=== PATIENT | female | born 1985 | race Caucasian/White ===

== ENCOUNTER → 2016-03-12 | Outpatient (CLI) | payer BC ==
[~2016-03-12] MED LIST: BP MED UNKNOWN; CEPH500C PO; CYCL10TA45 PO; HYDR-3702 PO; METH4TAB27 PO; NF-AMPE5T PO; NF-MEDROXA IM; PRED20TA PO; TRAZ-28 PO
[2016-03-13 19:25] VITALS: BP 135/86
--- NOTE | 2016-03-13 19:25 | Urgent Care T Sheet Gen (E) ---
Intake General Temperature (Fahrenheit): 98.6 Pulse: 113 Blood Pressure Systolic: 135 Blood Pressure Diastolic: 86 Respirations: 20 SPO2: 98 Chief Complaint: fever, body aches Source: Patient History of Present Illness Initial Comments Pt notes that on Friday she developed diarrhea and nausea. No vomiting. She notes that Friday evening she developed a fever of 101.5 with body aches. She notes that she has developed a slight cough and feels exhausted. She expresses concern that she might be developing "influenza". No recent travel. 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 She is drinking lots of water and holding fluids down well. Allergies: Coded Allergies: No Known Allergies (Verified Allergy, Unknown, 07/11/14) Home Meds Active Scripts Prednisone 20 Mg Zowsri60 Mg PO BID #6 TAB Prov:NATALI IGLESIAS PA 09/22/15 Hydrocodone/Acetaminophen ([facility] 5mg/325mg)1 Each Tablet1-2 Tab PO Q6H PRN PAIN #30 TAB Ref 0 Prov:RANDALL,GORDON Fawn DO 07/20/14 Cephalexin 500 Mg [id number] Mg PO QID #20 CAP Ref 0 Prov:ROOPA RANDALL Fawn DO 07/20/14 Reported Medications [Bp Med Unknown] No Conflict Check 07/11/14 Amphetamine Aspartate/Sulfate (Adderall)5 Mg Tab5 Mg PO TID 07/11/14 Trazodone HCl 50 Mg Tryryt31 Mg PO HS 07/11/14 Medroxyprogesterone Acetate (Depo-Provera)150 Mg/1 Ml Disp.uzgpb658 Mg IM UD 07/11/14 Respiratory Constitutional Symptoms: See HPI Fever EENTM: See HPI Nose Congestion Respiratory: See HPI Cough (mild) Cardiovascular: No symptoms reported Gastrointestinal/Abdominal: No No symptoms reported, See HPINo Abdominal pain , No Constipation, DiarrheaNo Black stools, NauseaNo Vomiting, No Other, No RUQ, No LUQ, No RLQ, No LLQ Genitourinary: No symptoms reported Skin: No symptoms reported All Other Systems Reviewed Remaining Systems: All other systems reviewed with negative findings Past Wjvburq-Xjwhzi-Bdwtbp Hx Patient's Social History Alcohol Use: Denies Use Smoking Status: Never smoker Recent foreign travel: No Surgeries/Hospitalizations Hospitalization/Surgery Hx: DENIES Respiratory Respiratory History: None Cardiovascular Cardiovascular History: Hypertension Reproductive System Sexually Transmitted Diseases: No Gastrointestinal GI/Endocrine History: None Diabetes Diabetes: No HEENT Impaired Vision: Glasses Hearing Impaired: None Integumentary Integumentary History: Other, see comments Comment: sutures to right hand R/T lac Psychosocial Behavior Disorders: None Physical Exam Physical Exam General Appearance: WD/WN No apparent distress Eyes, Ears, Nose, Throat Ex: PERRL/EOMI Normal ENT inspection TMs normal Pharynx normal Neck Exam: Non tender Full range of motion Normal inspection Normal thyroid Respiratory Exam: Lungs clear Normal breath sounds Cardiovascular Exam: Regular rate, rhythm No edema GI/ Exam: Non tender No organomegaly Normal bowel sounds No distention Skin Exam: No rashes Progress/Orders Lab Results Labs Results: Influenza A/B (Negative) Departure Urgent Care Impression Chief Complaint: fever, body aches Impression: Primary Impression: Viral gastroenteritis Departure Disposition: 01 HOME OR SELF-CARE Condition: Stable Referrals: Kelvin Potter MD (PCP) Additional Instructions: Rest, push fluids. Tylenol as directed for fever reduction/body aches. Follow-up with Primary Care Provider in 3-5 days Return to UC or ER if symptoms get worse or further concern. Discharge instructions verbally given to patient. Patient verbalizes understanding of discharge instructions. End of report . STACIE WOOD Mar 13, 2016 19:25
== END ==
LOC: MHUC 18:23
PROVIDERS: ATTEND Physician Assistant
DX: A08.4 Viral intestinal infection, unspecified (principal)
CPT/HCPCS: 99213

== ENCOUNTER → 2016-05-17 | Outpatient (CLI) | payer BC ==
[2016-05-17 16:20] VITALS: BP 129/77
== END ==
LOC: MHUC 16:07
PROVIDERS: ATTEND Nurse Practitioner
DX: M79.605 Pain in left leg (principal); M25.552 Pain in left hip; M54.32 Sciatica, left side
CPT/HCPCS: 99213

== ENCOUNTER 2016-05-25 17:59 | Emergency (ER) | payer BC ==
[~2016-05-25] VITALS: Ht 175.3 cm; Wt 100.6 kg
[~2016-05-25 17:59] MED LIST changes: -CYCL10TA45 PO; -METH4TAB27 PO
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
--- OUTSIDE RECORDS SUMMARY | 2016-05-25 18:03 | XMS REPORT | Continuity of Care Document ---
Author Author [facility] Address Unknown Phone Unavailable Allergies Active Description Code Type Severity Reaction Onset Reported/Identified Relationship to Patient Clinical Status Yes No Known Allergies [id number] Drug Allergy Unknown N/A 07/11/2014 Medications Problems [...] J00 ACUTE NASOPHARYNGITIS [COMMON COLD] 03/13/2016 NATALI HANSON Ot J00 ACUTE NASOPHARYNGITIS [COMMON COLD] 03/15/2016 STACIE ARRIOLA Ot A08.4 VIRAL INTESTINAL INFECTION, UNSPECIFIED 03/21/2016 STACIE ARRIOLA Ot A08.4 VIRAL INTESTINAL INFECTION, UNSPECIFIED 05/21/2016 Marisa Araujo WRITER Ot M25.552 PAIN IN LEFT HIP 05/21/2016 Marisa Araujo WRITER Ot M54.32 SCIATICA, LEFT SIDE 05/21/2016 Marisa Araujo WRITER Ot M79.605 PAIN IN LEFT LEG 05/23/2016 Marisa Araujo WRITER Ot M25.552 PAIN IN LEFT HIP 05/23/2016 Marisa rAaujo WRITER Ot M54.32 SCIATICA, LEFT SIDE 05/23/2016 Marisa Araujo APRN Ot M79.605 PAIN IN LEFT LEG Procedures Results Encounters ACCT No. Visit Date/Time Discharge Status Pt. Type Provider Facility Loc./Unit Complaint [id number] 07/20/2014 01:13:00 2014 02:40:[address] [facility] ED HSB [id number] 07/11/2014 22:12:00 2014 23:25:00 [id number] 05/25/2016 17:59:[address] [facility] ED [id number] 05/17/2016 16:07:00 ACT Outpatient Marisa Araujo WRITER [facility] [id number] 03/12/2016 18:23:00 ACT Outpatient STACIE ARRIOLA [facility] [id number] 09/22/2015 15:20:00 [facility]
[2016-05-25] MEDS ORDERED: KETOROLAC 60 MG/2 ML (TORADOL) VIAL IM ONE (19:00)
[2016-05-25] MEDS ORDERED: ORPHENADRINE 60 MG/2 ML (NORFLEX) AMP IM ONE (19:00)
[2016-05-25] MEDS ORDERED: ED- HYDROcodone/ACETAMINOPHEN 5MG/325MG (NORCO) 6 TABLETS/BTL PO ONE (19:00)
[2016-05-25] MEDS ORDERED: CYCL10TA45 PO (19:04)
[2016-05-25] MEDS ORDERED: METH4TAB27 PO (19:04)
--- NOTE | 2016-05-25 19:31 | NUR ---
SHOTS WERE GIVEN IM SO NOT START STOP TIME ON IV
[2016-05-25 19:32] VITALS: BP 135/77
== END 2016-05-25 19:33 | disposition home or self-care (01) ==
LOC: ED 17:59
DX: M54.32 Sciatica, left side (principal)
CPT/HCPCS: 96372; 99282; J1885; J2360; 99283